=== PATIENT | female | born 1965 | race Caucasian/White ===

== ENCOUNTER 2021-08-27 19:42 | Emergency (ER) | payer BC ==
[2021-08-27 20:30] LABS: HEMOGLOBIN 15.5 gm/dl (12.3-15.3); RED BLOOD COUNT 4.81 M/UL (4.00-5.10); WHITE BLOOD COUNT 9.6 K/UL (4.5-11.0)
[2021-08-27 21:06] LABS: BUN/CREATININE RATIO 19 (0-10)
[2021-08-27] MEDS ORDERED: CEPHALEXIN500 M1 PO (22:22)
== END 2021-08-27 22:40 | disposition home or self-care (01) ==
LOC: ER1 19:42
PROVIDERS: Emergency Medicine
DX: G40.909 Epilepsy, unspecified, not intractable, without status epilepticus (principal); S09.90XA Unspecified injury of head, initial encounter; Z20.822 Contact with and (suspected) exposure to COVID-19; W01.10XA Fall on same level from slipping, tripping and stumbling with subsequent striking against unspecified object, initial encounter
CPT/HCPCS: 12013; 70450; 70486; 72125; 80053; 82550; 82553; 84484; 85025; 90471; 90715; 93005; 96374; 99284; G0480; J1953; U0002